=== PATIENT | female | born 1955 | race Caucasian/White ===

== ENCOUNTER → 2018-05-13 | Outpatient (CLI) | payer BC ==
[~2018-05-13] MED LIST: DICL75TA2 PO; ESTR0.5T3 PO; HYDR25TA4 PO; LISI-556 PO; MEDR2.5T PO; POTA10TA10 PO; SIMV40TA4 PO; TRAM50TA2 PO
--- NOTE | 2018-05-13 10:13 | Diagnostic Imaging Report ---
CLINICAL INDICATION: Patient with neck pain/tingling with right shoulder area tingling x couple years. No known injury. EXAM: MRI of the cervical spine performed without IV contrast. Sequences include sagittal T2, sagittal T1, sagittal STIR, and axial T2. COMPARISON: X-ray of the cervical spine dated 10/31/2016. FINDINGS: There is no acute cervical spine fracture or dislocation. There is abnormal straightening of the mid to lower cervical spine posture centered at the C5 vertebral body level. Limited visualization of the posterior fossa and cervical spine shows no significant abnormality. There is normal cervical cord caliber. There is normal T1 and T2 signal seen throughout the cervical spine. There is no significant paraspinal soft tissue abnormality. There are hypertrophic spurs and disc herniations and facet arthropathy seen throughout the cervical spine. C1-C2: There is a periodontoid pannus seen predominantly extending anteriorly. There is no definite odontoid process or erosive changes. There is spurring of the atlantoodontoid interval anteriorly. There is no significant central canal narrowing. C2-C3: There is mild facet arthropathy. There is no significant central spinal canal or neural foramen narrowing. C3-C4: There is a small central posterior disc protrusion/herniation. There is moderate bilateral facet arthropathy/hypertrophy. There is severe right neural foramen narrowing and mild to moderate left neural foramen narrowing. There is no significant central canal narrowing. C4-C5: There is a diffuse disc bulge with moderate size anterior disc herniation and moderate central posterior disc extrusion/herniation. There is moderate bilateral facet arthropathy/hypertrophy. There is at least moderate right neural foramen narrowing and severe left neural foramen narrowing. There is mild central canal narrowing. C5-C6: There is a diffuse disc bulge with moderate to large anterior disc osteophyte complex and moderate size broad posterior disc protrusion/herniation. There is moderate loss of intervertebral disc height. There is mild ligamentum flavum buckling and mild to moderate bilateral facet arthropathy. There is moderate to severe central canal narrowing, moderate right neural foramen narrowing and severe left neural foramen narrowing. C6-C7: There is a diffuse disc bulge and minimal ligamentum flavum buckling. There is mild bilateral facet arthropathy. There is a small perineural cyst seen bilaterally with the largest one seen on the right side and measures 4 mm. There is mild to moderate central canal narrowing, mild right neural foramen narrowing and severe left neural foramen narrowing. C7-T1: There is a small posterior disc bulge and minimal ligamentum flavum buckling. There is moderate left neural foramen narrowing and no significant right neural foramen narrowing. There are small perineural cysts seen bilaterally. IMPRESSION: 1: There is moderate to severe multilevel cervical spine degenerative disc disease which is worse at the C4-C7 levels which is described in detail above. 2: There is multilevel disc herniations and facet arthropathy and ligamentum flavum buckling seen. There is moderate to severe central canal narrowing at C5-C6 level. 3: There is multilevel neural foramen narrowing, as described above. Dictated by: Dictated on workstation # [id number]
== END ==
LOC: RAD 08:58
PROVIDERS: ATTEND Family Medicine
DX: M48.02 Spinal stenosis, cervical region (principal); M99.71 Connective tissue and disc stenosis of intervertebral foramina of cervical region; M50.13 Cervical disc disorder with radiculopathy, cervicothoracic region; M50.122 Cervical disc disorder at C5-C6 level with radiculopathy; G96.19 Other disorders of meninges, not elsewhere classified; M46.82 Other specified inflammatory spondylopathies, cervical region
CPT/HCPCS: 72141

== ENCOUNTER → 2019-04-26 | Outpatient (CLI) | payer BC ==
--- NOTE | 2019-04-26 21:21 | Diagnostic Imaging Report ---
INDICATION: Routine screening. Comparison is made with prior mammogram from 08/17/2013. 2-D and 3-D bilateral screening mammography was performed with CAD. The current study was also evaluated with a Computer Aided Detection (CAD) system. 3-D tomosynthesis was also performed and reviewed. Scattered fibroglandular densities are identified bilaterally. Benign-appearing parenchymal nodules are noted bilaterally consistent with intramammary lymph nodes. No spiculated mass or malignant appearing microcalcifications are seen. The axillae are unremarkable. IMPRESSION: No mammographic features suspicious for malignancy are identified. ACR BI-RADS Category 2: Benign findings. Result letter will be mailed to the patient. Note: At least 10% of breast cancer is not imaged by mammography. Dictated by: Dictated on workstation # [id number]
== END ==
LOC: RAD 13:04
PROVIDERS: ATTEND Obstetrics & Gynecology
DX: Z12.31 Encounter for screening mammogram for malignant neoplasm of breast (principal)
CPT/HCPCS: 77067

== ENCOUNTER 2019-05-23 08:56 | Outpatient (CLI) | payer BC ==
[~2019-05-23] VITALS: Ht 162.6 cm; Wt 82.2 kg
[2019-05-23] MEDS ORDERED: LISI10TA2 PO (09:14)
[2019-05-23 09:16] VITALS: BP 118/65
[2019-05-23 10:10] LABS: BASOPHILS % (AUTO) 0 % (0-10); EOSINOPHILS # (AUTO) 0.2 10^3/uL (0.0-0.3); EOSINOPHILS % (AUTO) 4 % (0-10); HEMATOCRIT 36 % (35-52); HEMOGLOBIN 11.7 G/DL (11.5-16.0); LYMPHOCYTES # (AUTO) 1.9 X 10^3 (1.0-4.0); LYMPHOCYTES % (AUTO) 32 % (12-44); MEAN CORPUSCULAR HEMOGLOBIN 29 PG (25-34); MEAN CORPUSCULAR HGB CONC 32 G/DL (32-36); MEAN CORPUSCULAR VOLUME 89 FL (80-99); MEAN PLATELET VOLUME 10.6 FL (7.4-10.4); MONOCYTES # (AUTO) 0.5 X 10^3 (0.0-1.0); MONOCYTES % (AUTO) 9 % (0-12); NEUTROPHILS # (AUTO) 3.2 X 10^3 (1.8-7.8); NEUTROPHILS % (AUTO) 55 % (42-75); PLATELET COUNT 274 10^3/uL (130-400); RED CELL DISTRIBUTION WIDTH 13.3 % (10.0-14.5); WHITE BLOOD COUNT 5.9 10^3/uL (4.3-11.0)
[2019-05-27] MEDS ORDERED: DOCU-143 PO (08:58)
[2019-05-27] MEDS ORDERED: OXYC1TAB87 PO (08:58)
== END 2019-05-23 14:41 | disposition home or self-care (01) ==
LOC: PREOP 08:56
PROVIDERS: ATTEND Obstetrics & Gynecology
DX: Z01.812 Encounter for preprocedural laboratory examination (principal); Z11.2 Encounter for screening for other bacterial diseases; N39.3 Stress incontinence (female) (male); N81.10 Cystocele, unspecified; N93.8 Other specified abnormal uterine and vaginal bleeding; N95.0 Postmenopausal bleeding; D64.9 Anemia, unspecified
CPT/HCPCS: 36415; 85025; 86850; 86900; 86901; 87081

== ENCOUNTER 2019-05-27 10:20 | Day surgery (SDC) | payer BC ==
--- NOTE | 2019-05-10 17:52 | HISTORY AND PHYSICAL ---
DATE OF SERVICE: HISTORY OF PRESENT ILLNESS: The patient is a 64-year-old G2, P2 white female with a long history of abnormal uterine bleeding. She was found to have endometrial hyperplasia on an endometrial biopsy on 12/09/2018. She has been treated intermittently with progesterone, but has requested definitive surgical treatment for her bleeding rather than continued hormonal manipulation and in addition she is planning a surgical procedure with Dr. Shook for stress urinary incontinence and is requesting that her uterovaginal prolapse being repaired concurrently as her symptoms are becoming intolerable in regard to her cystocele and rectocele. She is aware of the surgical risks, potential complications, recovery and follow up from definitive surgery for uterovaginal prolapse and stress incontinence. ALLERGIES: None. MEDICATIONS: Estradiol 0.5 mg per day, diclofenac 75 mg per day, simvastatin 40 mg per day, lisinopril 10 mg per day and doxycycline 20 mg b.i.d. p.r.n. for periodontal issue. PAST MEDICAL HISTORY: Consistent with hypertension, arthritis. The patient had a colonoscopy in 2015. SURGICAL HISTORY: Negative. PAST OB HISTORY: The patient had two spontaneous vaginal deliveries in 10/1981 and in 03/1984. GYNECOLOGIC HISTORY: Includes a menstrual formula of 12. The patient is currently menopausal. Her Pap smears have all been normal. FAMILY HISTORY: Negative for breast cancer, but her mother did have ovarian cancer at the age of 70. There is no diabetes in the family. The father does have some type of heart disease. SOCIAL HISTORY: The patient is . She is a paraprofessional. She denies drug, alcohol or tobacco use and has no history of STDs. REVIEW OF SYSTEMS: As per the HPI. PHYSICAL EXAMINATION: GENERAL: The patient is well-developed, well-nourished female in no acute distress. HEENT: Normal. NECK: Supple, no lymphadenopathy, no thyromegaly. ABDOMEN: Soft, nontender, nondistended. EXTREMITIES: Show no clubbing, cyanosis. There is no Homans sign. PELVIC EXAM: Deferred to the OR, but her previous exam showed a first degree plus cystocele and second-degree rectocele. An 8 to 10 week size uterine with first to second-degree descensus, all of her prolapse is fairly significantly increased with Valsalva. IMPRESSION: Uterovaginal prolapse with stress urinary incontinence in a patient with abnormal bleeding and a history of endometrial hyperplasia inadequately controlled with hormonal manipulation. PLAN: Plan is for total laparoscopic hysterectomy with bilateral salpingo-oophorectomy as well as anterior and posterior vaginal repairs with Dr. Shook performing a pubovaginal sling and cystoscopy on 05/27/2019. Again, surgical risks, complication, recovery and follow up have been fully discussed with this patient. She accepts those risks and is ready to proceed with the surgery on that date. Job ID: [id number] DocumentID: [id number] Dictated Date: 05/05/2019 10:18:56 Concession Stand Attendant Date: 05/05/2019 16:57:15 Dictated By: GOLDEN BIGGS MD
[~2019-05-27] VITALS: Ht 162.6 cm; Wt 82.2 kg
[2019-05-27] VITALS (13 sets, daily range): BP systolic 16–131; BP diastolic 50–115
--- NOTE | 2019-05-27 09:00 | Discharge Instructions ---
Discharge Instructions Discharge Medications New, Converted or Re-Newed RX: RX on Chart Patient Instructions Patient Instructions: as directed Return to The Hospital For: as directed Activity & Diet Discharge Diet: No Restrictions Activity as Tolerated: No Orders-Post D/C & Referrals Follow Up Appt: RTC on Thursday at 9:30 AM for staple removal Call to make follow up appt. for patient in 4 weeks. Follow up with Dr Shook per his directions Activity: Rest for 24 hours, than as tolerated. Wound Care: May remove Band-Aid tomorrow. Replace as desired. Keep incisions clean and dry. Wash daily with soap and water. Please call in RX to patient pharmacy. Diet: As tolerated-Clear Liquids only if nauseated. may shower or tub bathe as desired. No driving for 24 hours, no alcoholic beverages for 24 hours, and nothing per vagina (no tampons, douching, or intercourse) for 8 weeks. Patient to return to the clinic as soon as possible for: Temperature greater than 101F, Severe Pain, Foul discharge from incision or vagina, Excessive Bleeding (more than a period). GOLDEN BIGGS MD May 27, 2019 09:00
--- NOTE | 2019-05-27 09:01 | Progress Note-Pre Operative ---
Pre-Operative Progress Note H&P Reviewed The H&P was reviewed, patient examined and no changes noted. Date Seen by Provider: May 27, 2019 Time Seen by Provider: 12:18 Date H&P Reviewed: May 27, 2019 Time H&P Reviewed: 12:18 Pre-Operative Diagnosis: DUB/PMB/Uterovaginal prolapse GOLDEN BIGGS MD May 27, 2019 09:01
--- NOTE | 2019-05-27 09:03 | Progress Note-Post Operative ---
Post-Operative Progess Note Surgeon (s)/Therapeutic Assistant (s) Surgeon GOLDEN BIGGS MD Therapeutic Assistant: Brittny Neville Pre-Operative Diagnosis DUB/PMB/Uterovaginal prolapse Post-Operative Diagnosis same Procedure & Operative Findings Date of Procedure 05/27/19 Procedure Performed/Findings TLH/BSO/A&P repairs with PVS and cysto by Dr Shook Anesthesia Type GETA Estimated Blood Loss Estimated blood loss (mL): 150 CC Specimens/Packing Specimens Removed Uterus/tubes/ovaries Packing: Kerlix in vagina GOLDEN BIGGS MD May 27, 2019 09:03
--- NOTE | 2019-05-27 09:22 | Progress Note-Pre Operative ---
Pre-Operative Progress Note H&P Reviewed The H&P was reviewed, patient examined and no changes noted. Date Seen by Provider: May 27, 2019 Time Seen by Provider: 11:34 Date H&P Reviewed: May 27, 2019 Time H&P Reviewed: 11:34 Pre-Operative Diagnosis: INCONTINENCE RENITA SUMNER MD May 27, 2019 09:22
[~2019-05-27 10:20] MED LIST changes: +DOCU-143 PO; +LISI10TA2 PO; +OXYC1TAB87 PO
[2019-05-27] MEDS ORDERED: fentaNYL INJECTION 100 MCG/2 ML AMP ONE (10:22)
[2019-05-27] MEDS ORDERED: ONDANSETRON 4 MG/2 ML (SDV) Z0FRAN ONE ×3 (10:22→14:45)
[2019-05-27] MEDS ORDERED: LIDOCAINE PF 2% 5 ML (XYLOCAINE) VIAL ONE (10:22)
[2019-05-27] MEDS ORDERED: proPOfol 200 MG/20 ML (DIPRIVAN) VIAL IV ONE (10:22)
[2019-05-27] MEDS ORDERED: DEXAMETHASONE 10 MG/ML (DECADRON) 1 ML VIAL ONE (10:22)
[2019-05-27] MEDS ORDERED: MIDAZOLAM 2 MG/2 ML (VERSED) VIAL ONE (10:22)
[2019-05-27] MEDS ORDERED: ceFAZolin 1,000 MG/SWFI 10 ML IV PUSH IV ONE ×2 (10:30)
--- OUTSIDE RECORDS SUMMARY | 2019-05-27 10:54 | XMS REPORT | Continuity of Care Document ---
Author Organization Unknown Address Unknown Allergies Active Description Code Type Severity Reaction Onset Reported/Identified Relationship to Patient Clinical Status Yes No Known Drug Allergies [id number] Drug Allergy Unknown N/A 05/23/2019 Medications There is no data. Problems Date Dx Coded Attending Type Code Diagnosis Diagnosed By 09/25/2015 ROBIN CODY MD Ot R10.32 10/10/2015 ROBIN CODY MD Ot K86.9 10/10/2015 ROBIN CODY MD Ot R10.2 12/24/2015 JOSELO DUNN, RENNY Weaver Ot R10.32 LEFT LOWER QUADRANT PAIN 12/24/2015 JOSELO DUNN, RENNY Weaver Ot Z12.11 ENCOUNTER FOR SCREENING FOR MALIGNANT NE 10/31/2016 JESUS SALDANA MD Ot I10 ESSENTIAL (PRIMARY) HYPERTENSION 10/31/2016 JESUS SALDANA MD Ot M50.322 OTHER CERVICAL DISC DEGENERATION AT C5-C 10/31/2016 JESUS SALDANA MD Ot M54.2 CERVICALGIA 10/31/2016 JESUS SALDANA MD Ot Z79.899 OTHER LOAN DOCUMENTS CLOSER (CURRENT) DRUG THERAPY 11/02/2016 JESUS SALDANA MD Ot I10 ESSENTIAL (PRIMARY) HYPERTENSION 11/02/2016 JESUS SALDANA MD Ot M50.322 OTHER CERVICAL DISC DEGENERATION AT C5-C 11/02/2016 JESUS SALDANA MD Ot M54.2 CERVICALGIA 11/02/2016 JESUS SALDANA MD Ot Z79.899 OTHER LONG-TERM (CURRENT) DRUG THERAPY 05/12/2018 ROBIN CODY MD Ot 625.8 FEM GENITAL SYMPTOMS NEC 05/12/2018 ROBIN CODY MD Ot 719.45 JOINT PAIN-PELVIS 05/12/2018 ROBIN CODY MD Ot V16.41 FAM HX-MAL NEOP-OVARY 05/12/2018 ROBIN CODY MD Ot V76.12 OTH SCREEN MAMMO-MALIGN NEOPLASM OF MANAN 05/12/2018 ROBIN CODY MD Ot R10.32 LEFT LOWER QUADRANT PAIN 05/12/2018 ESCOBAR DUNN, ROBIN Valadez Ot K86.9 DISEASE OF PANCREAS, UNSPECIFIED 05/12/2018 ROBIN CODY MD Ot R10.2 PELVIC AND PERINEAL PAIN 05/12/2018 JOSELO DUNN, RENNY Weaver Ot Z01.818 ENCOUNTER FOR OTHER PREPROCEDURAL EXAMIN 05/14/2018 NIKITA PARKS MD Ot G96.19 OTHER DISORDERS OF MENINGES, NOT ELSEWHE 05/14/2018 NIKITA PARKS MD Ot M46.82 OT INFLAMMATORY SPONDYLOPATHIES, CERVIC 05/14/2018 NIKITA PARKS MD, Ot M48.02 SPINAL STENOSIS, CERVICAL REGION 05/14/2018 NIKITA PARKS MD, Ot M50.122 CERVICAL DISC DISORDER AT C5-C6 LEVEL WI 05/14/2018 NIKITA PARKS MD, Ot M50.13 CERVICAL DISC DISORDER W RADICULOPATHY, 05/14/2018 NIKITA PARKS MD Ot M99.71 CONN TISS AND DISC STENOSIS OF INTVRT FO 05/14/2018 NIKITA PARKS MD Ot G96.19 OTHER DISORDERS OF MENINGES, NOT ELSEWHE 05/14/2018 NIKITA PARKS MD Ot M46.82 OT INFLAMMATORY SPONDYLOPATHIES, CERVIC 05/14/2018 NIKITA PARKS MD, Ot M48.02 SPINAL STENOSIS, CERVICAL REGION 05/14/2018 NIKITA PARKS MD Ot M50.122 CERVICAL DISC DISORDER AT C5-C6 LEVEL WI 05/14/2018 NIKITA PARKS MD Ot M50.13 CERVICAL DISC DISORDER W RADICULOPATHY, 05/14/2018 NIKITA PARKS MD, Ot M99.71 CONN TISS AND DISC STENOSIS OF INTVRT FO 05/25/2018 NIKITA PARKS MD Ot G96.19 OTHER DISORDERS OF MENINGES, NOT ELSEWHE 05/25/2018 NIKITA PARKS MD Ot M46.82 OT INFLAMMATORY SPONDYLOPATHIES, CERVIC 05/25/2018 NIKITA PARKS MD Ot M48.02 SPINAL STENOSIS, CERVICAL REGION 05/25/2018 NIKITA PARKS MD Ot M50.122 CERVICAL DISC DISORDER AT C5-C6 LEVEL WI 05/25/2018 NIKITA PARKS MD Ot M50.13 CERVICAL DISC DISORDER W RADICULOPATHY, 05/25/2018 NIKITA PARKS MD Ot M99.71 CONN TISS AND DISC STENOSIS OF INTVRT FO 04/25/2019 ROBIN CODY MD Ot R10.32 LEFT LOWER QUADRANT PAIN 04/25/2019 ROBIN CODY MD Ot K86.9 DISEASE OF PANCREAS, UNSPECIFIED 04/25/2019 ROBIN CODY MD Ot R10.2 PELVIC AND PERINEAL PAIN 04/25/2019 JOSELO DUNN, RENNY Weaver Ot Z01.818 ENCOUNTER FOR OTHER PREPROCEDURAL EXAMIN 04/25/2019 NIKITA PARKS MD Ot G96.19 OTHER DISORDERS OF MENINGES, NOT ELSEWHE 04/25/2019 NIKITA PARKS MD Ot M46.82 OTH INFLAMMATORY SPONDYLOPATHIES, CERVIC 04/25/2019 NIKITA PARKS MD Ot M48.02 SPINAL STENOSIS, CERVICAL REGION 04/25/2019 NIKITA PARKS MD Ot M50.122 CERVICAL DISC DISORDER AT C5-C6 LEVEL WI 04/25/2019 NIKITA PARKS MD Ot M50.13 CERVICAL DISC DISORDER W RADICULOPATHY, 04/25/2019 NIKITA PARKS MD Ot M99.71 CONN TISS AND DISC STENOSIS OF INTVRT FO 04/28/2019 GOLDEN BIGGS MD Ot Z12.31 ENCNTR SCREEN MAMMOGRAM FOR MALIGNANT NE 04/28/2019 GOLDEN BIGGS MD Ot Z12.31 ENCNTR SCREEN MAMMOGRAM FOR MALIGNANT NE 05/12/2019 GOLDEN BIGGS MD Ot Z12.31 ENCNTR SCREEN MAMMOGRAM FOR MALIGNANT NE 05/23/2019 ROBIN CODY MD Ot R10.32 LEFT LOWER QUADRANT PAIN 05/23/2019 ROBIN CODY MD Ot K86.9 DISEASE OF PANCREAS, UNSPECIFIED 05/23/2019 ROBIN CODY MD Ot R10.2 PELVIC AND PERINEAL PAIN 05/23/2019 JOSELO DUNN, RENNY M Ot Z01.818 ENCOUNTER FOR OTHER PREPROCEDURAL EXAMIN 05/23/2019 NIKITA PARKS MD Ot G96.19 OTHER DISORDERS OF MENINGES, NOT ELSEWHE 05/23/2019 NIKITA PARKS MD Ot M46.82 OTH INFLAMMATORY SPONDYLOPATHIES, CERVIC 05/23/2019 NIKITA PARKS MD Ot M48.02 SPINAL STENOSIS, CERVICAL REGION 05/23/2019 CHARLY DUNN, NIKITA Reis Ot M50.122 CERVICAL DISC DISORDER AT C5-C6 LEVEL WI 05/23/2019 NIKITA PARKS MD, Ot M50.13 CERVICAL DISC DISORDER W RADICULOPATHY, 05/23/2019 NIKITA PARKS MD, Ot M99.71 CONN TISS AND DISC STENOSIS OF INTVRT FO 05/23/2019 DIAN DUNN, GOLDEN Jiménez Ot Z12.31 ENCNTR SCREEN MAMMOGRAM FOR MALIGNANT NE Procedures There is no data. Results Test Result Range Complete blood count (CBC) with automated white blood cell (WBC) differential - 05/23/19 09:30 Blood leukocytes automated count (number/volume) 5.9 10*3/uL 4.3-11.0 Blood erythrocytes automated count (number/volume) 4.04 10*6/uL 4.35-5.85 Venous blood hemoglobin measurement (mass/volume) 11.7 g/dL 11.5-16.0 Blood hematocrit (volume fraction) 36 % 35-52 Automated erythrocyte mean corpuscular volume 89 [foz_us] 80-99 Automated erythrocyte mean corpuscular hemoglobin (mass per erythrocyte) 29 pg 25-34 Automated erythrocyte mean corpuscular hemoglobin concentration measurement (mass/volume) 32 g/dL 32-36 Automated erythrocyte distribution width ratio 13.3 % 10.0- 14.5 Automated blood platelet count (count/volume) 274 10*3/uL 130-400 Automated blood platelet mean volume measurement 10.6 [foz_us] 7.4-10.4 Automated blood neutrophils/100 leukocytes 55 % 42-75 Automated blood lymphocytes/100 leukocytes 32 % 12-44 Blood monocytes/100 leukocytes 9 % 0-12 Automated blood eosinophils/100 leukocytes 4 % 0-10 Automated blood basophils/100 leukocytes 0 % 0-10 Blood neutrophils automated count (number/volume) 3.2 10*3 1.8-7.8 Blood lymphocytes automated count (number/volume) 1.9 10*3 1.0-4.0 Blood monocytes automated count (number/volume) 0.5 10*3 0.0- 1.0 Automated eosinophil count 0.2 10*3/uL 0.0-0.3 Automated blood basophil count (count/volume) 0.0 10*3/uL 0.0-0.1 Blood type T Indirect antibody screen panel - 05/23/19 09:30 ABO+Rh group AP NRG Blood group antibody screen NEGATIVE NRG Methicillin resistant Staphylococcus aureus (MRSA) screening culture - 05/23/19 09:30 Methicillin resistant Staphylococcus aureus (MRSA) screening culture NEG NRG Encounters ACCT No. Visit Date/Time Discharge Status Pt. Type Provider Facility Loc./Unit Complaint [id number] 05/23/2019 08:56:00 05/23/2019 14:41:00 DIS Outpatient GOLDEN BIGGS MD [facility] PREOP TLH, BSO, AP REPAIR, SLING [id number] 04/26/2019 13:04:00 04/26/2019 23:59:59 CLS Outpatient GOLDEN BIGGS MD [facility] RAD ROUTINE [id number] 12/09/2018 10:48:00 12/09/2018 23:59:59 CLS Preadmit GOLDEN BIGGS MD [facility] RAD SCREENING [id number] 05/13/2018 08:58:00 05/13/2018 23:59:59 CLS Outpatient NIKITA PARKS MD [facility] RAD CERVICALGIA,RAICULOPATHY [id number] 10/31/2016 12:15:00 10/31/2016 14:57:00 DIS Emergency JESUS SALDANA MD [facility] ER NECK PAIN [id number] 12/24/2015 13:46:00 12/24/2015 23:59:59 CLS Outpatient RENNY JOSUE MD [facility] SDC ABDOMINAL PAIN; SCREENING [id number] 12/21/2015 05:42:00 12/21/2015 23:59:59 CLS Outpatient RENNY JOSUE MD [facility] PREOP ABDOMINAL PAIN; SCREENING [id number] 09/24/2015 07:54:00 09/24/2015 23:59:59 CLS Outpatient ROBIN CODY MD [facility] RAD LEFT ABD PELVIC PAIN, ENLARGED AREA PANCREAS [id number] 09/14/2015 13:38:00 09/14/2015 23:59:59 CLS Outpatient ROBIN CODY MD [facility] RAD LLQ PAIN [id number] 08/17/2013 07:49:00 08/17/2013 23:59:59 CLS Outpatient ESCOBAR DUNN, ROBIN Valadez [facility] RAD SCREENING,TENDER ENLARGED LFT OVARY, RT HIP PAIN [id number] 05/25/2013 10:46:00 05/25/2013 23:59:59 CLS Outpatient [id number] 05/27/2019 12:00:00 ABRAHAM BIGGS MD, GOLDEN Jiménez [facility] DYSFUNCTIONAL UTERINE BLEEDING, POST MENOPAUSAL BL
[2019-05-27] MEDS ORDERED: ceFAZolin INJECTION 1,000 MG in WATER (STERILE) FOR INJECTION 10 ML IV ONE (11:15)
[2019-05-27] MEDS ORDERED: BUP/EPI 0.25% 1:200,000 (MARCAINE) 10 ML VIAL IJ ONE (11:42)
[2019-05-27] MEDS ORDERED: ESTRADIOL VAGINAL CREAM 42.5 GM (ESTRACE) VG ONE (11:42)
[2019-05-27] MEDS ORDERED: SEVOFLURANE (ULTANE) 15 ML INHAL SOLN ONE ×8 (12:00→14:10)
[2019-05-27] MEDS ORDERED: HYDROmorphone 2 MG/ML VIAL (DILAUDID) ONE ×3 (12:56→14:44)
[2019-05-27] MEDS: LACTATED RINGERS 1,000 ML IV PRN ×2 (12:59→15:00)
[2019-05-27] MEDS ORDERED: NEOSTIGMINE 3 MG/3 ML VIAL ONE (13:51)
[2019-05-27] MEDS ORDERED: GLYCOPYRROLATE 0.2 MG/ML (ROBINUL) 2 ML VIAL ONE ×2 (13:51→14:29)
--- NOTE | 2019-05-27 13:59 | Progress Note-Post Operative ---
Post-Operative Progess Note Surgeon (s)/Water Leak Repairer (s) Surgeon RENITA SUMNER MD Water Leak Repairer: Danielle BIGGS Pre-Operative Diagnosis INCONTINENCE Post-Operative Diagnosis SAME Procedure & Operative Findings Date of Procedure 05/27/19 Procedure Performed/Findings PVS AND CYSTOSCOPY Anesthesia Type GENERAL Estimated Blood Loss Estimated blood loss (mL): LESS THAN 50CC Specimens/Packing Specimens Removed NONE Packing: Kerlix in vagina RENITA SUMNER MD May 27, 2019 13:59
[2019-05-27] MEDS ORDERED: ROCURONIUM 10 MG/ML 5 ML SYRINGE IV ONE (14:12)
[2019-05-27] MEDS ORDERED: morphine INJ 10 MG/ML 1ML (SYR OR VIAL) ONE (14:21)
[2019-05-27] MEDS: WATER (STERILE) FOR INJ 10 ML BTL INJ ONE ×2 (14:28→16:37)
[2019-05-27] MEDS: ESTROGENS CONJ IV 25 MG/5 ML (PREMARIN) VIAL ONE ×2 (14:28→16:37)
[2019-05-27] MEDS ORDERED: ONDANSETRON 4 MG/2 ML (SDV) Z0FRAN IVP PRN ×2 (14:45)
[2019-05-27] MEDS ORDERED: ESTROGENS CONJ IV 25 MG/5 ML (PREMARIN) VIAL IVP ONE (14:45)
[2019-05-27] MEDS ORDERED: PROMETHAZINE INJ 25 MG/ML (PHENERGAN) AMP IM PRN (14:45)
[2019-05-27] MEDS ORDERED: MEPERIDINE (DEMEROL) INJ 100 MG/ML IM PRN (14:45)
[2019-05-27] MEDS ORDERED: oxyCODONE/APAP 5/325MG (PERCOCET 5) TABLET PO PRN (14:45)
[2019-05-27] MEDS ORDERED: BENZOCAINE/MENTHOL (DERMOPLAST) 56 ML CAN TP PRN (14:45)
[2019-05-27] MEDS ORDERED: WATER (STERILE) FOR INJECTION 10 ML ONE (14:46)
[2019-05-27] MEDS: HYDROmorphone 2 MG/ML VIAL (DILAUDID) IV ONE ×2 (15:05→16:43)
--- NOTE | 2019-05-27 16:00 | NUR ---
Patient arrived to room 306 via bed from PACU accompanied by Christianne CLARK. Report received and care of patient assumed.
--- NOTE | 2019-05-27 16:28 | NUR ---
Admission assessment completed and vital signs obtained, see interventions. Plan of care reviewed with patient and . Understanding verbalized and patient denies any current questions or concerns at this time. SCD's on bilaterally. IV converted to pump tubing. Cheney to dependent drainage.
[2019-05-27] MEDS: D5 LR IV SOLUTION 1,000 ML IV SCH ×2 (16:36→22:21)
[2019-05-27] MEDS: KETOROLAC 30 MG/ML VIAL IVP SCH ×2 (17:20→23:36)
--- NOTE | 2019-05-27 17:20 | NUR ---
Toradol 30mg IV given at this time. Patient reports mild headache but otherwise is feeling "good."
--- NOTE | 2019-05-27 19:30 | NUR ---
Report to Marc Claire RN.
[2019-05-27] MEDS ORDERED: CHLORASEPTIC LOZENGE MM ONE (23:34)
--- NOTE | 2019-05-28 00:15 | OPERATIVE REPORT ---
DATE OF SERVICE: 05/27/2019 PREOPERATIVE DIAGNOSES: Dysfunctional uterine bleeding, postmenopausal bleeding, uterine and vaginal prolapse and stress urinary incontinence. POSTOPERATIVE DIAGNOSES: Dysfunctional uterine bleeding, postmenopausal bleeding, uterine and vaginal prolapse and stress urinary incontinence with pathology pending. OPERATIVE PROCEDURE: Total laparoscopic hysterectomy with bilateral salpingo-oophorectomy as well as anterior and posterior vaginal repair with enterocele repair and pubovaginal sling and cystoscopy by Dr. Shook. OPERATIVE DESCRIPTION: With the patient in the supine position under satisfactory general anesthesia, she was repositioned in dorsal lithotomy position in the [facility] and prepped and draped in the usual fashion for abdominal and vaginal surgery using the da Erica equipment. Weighted speculum placed in posterior fornix of vagina, cervix exposed and grasped anteriorly with single tooth tenaculum. Uterus was sounded to 8.5 cm with uterine sound. The cervix was then serially dilated with Juan M dilators to accommodate Jazmine II manipulator, which was placed in the usual manner with a 6 mm x 8 cm uterine probe and a 30 mm colpotomy ring. Sutures of #1 Vicryl placed at 3 and 9 o'clock position of the cervix to stabilize the uterus and affixed to the manipulator. Cheney catheter was placed in the urinary bladder and the patient brought in low dorsal lithotomy position. A 12 mm incision was made 4 cm superior to the umbilicus. Veress needle was placed through that incision into the abdominal cavity and correct placement confirmed with a water drop test. The abdomen was insufflated with 2.4 liters of carbon dioxide and the Veress needle was removed and a 12 mm Optiview laparoscopic port placed. The abdominal wall was transilluminated and 8 mm ports were placed through incisions of those sizes 9 cm lateral to the umbilicus at the level of the umbilicus on each side. All port sites were infiltrated with 0.25% Marcaine with epinephrine prior to incision. Job ID: [id number] DocumentID: [id number] Dictated Date: 05/27/2019 14:24:23 Steel Floor Pan Placing Supervisor Date: 05/28/2019 00:14:49 Dictated By: GOLDEN BIGGS MD
[2019-05-28 04:54] VITALS: BP 112/47
[2019-05-28] MEDS: KETOROLAC 30 MG/ML VIAL IVP SCH (04:55)
--- NOTE | 2019-05-28 07:30 | NUR ---
DR. BIGGS HERE TO SEE PT. PLAN FOR DISCHARGE TODAY.
--- NOTE | 2019-05-28 07:32 | Progress Note ---
Standard Progress Note Progress Notes/Assess & Plan Date Seen by a Provider: May 28, 2019 Time Seen by a Provider: 07:31 Progress/Assessment & Plan This patient without complaint. She is ambulating, tolerating oral intake well and has been pain control. She denies chest pain, denies shortness of breath, nausea vomiting, and denies headache. She has not voided as of yet Vital Signs Date Time Temp Pulse Resp B/P (MAP) Pulse Ox O2 Delivery O2 Flow Rate FiO2 05/28/19 04:54 99.4 57 18 112/47 (68) 96 Room Air 05/27/19 23:36 99.9 68 18 116/59 (78) 97 Room Air 05/27/19 19:57 Room Air 05/27/19 19:57 98.7 60 18 119/59 (79) 100 Room Air 05/27/19 16:39 Room Air 05/27/19 16:28 100 High Flow N/C 3.00 21 05/27/19 16:28 97.7 57 18 123/61 (81) 100 High Flow N/C 21.00 3.00 05/27/19 16:00 Nasal Cannula 3 05/27/19 15:50 97.5 16 99 Nasal Cannula 3 05/27/19 15:45 OxyMask 3 05/27/19 15:40 50 Nasal Cannula 3 05/27/19 15:30 16 99 OxyMask 5 05/27/19 15:30 OxyMask 5 05/27/19 15:20 16 100 OxyMask 05/27/19 15:15 OxyMask 10 05/27/19 15:10 16 100 OxyMask 10 05/27/19 15:00 16 100 OxyMask 10 05/27/19 15:00 OxyMask 10 05/27/19 14:50 16 100 OxyMask 10 05/27/19 14:45 OxyMask 10 05/27/19 14:40 16 100 10 05/27/19 14:29 97.6 20 98 OxyMask 10 05/27/19 11:17 98.7 55 18 128/64 (85) 98 Room Air I & O 05/28/19 07:00 Intake Total 2620 ml Output Total 1850 ml Balance 770 ml Vital signs are stable. Patient is afebrile. The abdomen is benign. Extremities show no clubbing or cyanosis. No Homans sign. Assessment and plan postoperative day number 1 doing well. Plan is for routine, here with discharge home on patient has demonstrated adequate bladder function. Final Diagnosis DUB/postmenopausal bleeding/uterovaginal prolapse GOLDEN BIGGS MD May 28, 2019 07:32
[2019-05-28] MEDS ORDERED: CHLORASEPTIC LOZENGE MM PRN (07:45)
--- NOTE | 2019-05-28 08:10 | Anesthesia-General Post-Op ---
General Patient Condition Mental Status/LOC: Same as Preop Cardiovascular: Satisfactory Nausea/Vomiting: Absent Respiratory: Satisfactory Pain: Controlled Complications: Absent Post Op Complications Complications None Follow Up Care/Instructions Patient Instructions None needed. Anesthesia/Patient Condition Patient Condition Patient is doing well, no complaints, stable vital signs, no apparent adverse anesthesia problems. No complications reported per nursing. D/C home per [facility] Criteria: Yes DANIELLE CONCEPCION CRNA May 28, 2019 08:10
[2019-05-28 08:45] VITALS: BP 118/56
--- NOTE | 2019-05-28 08:45 | NUR ---
VSS. ASSESSMENT COMPLETED. UP TO THE BATHROOM. VOIDED 50 CC. PERICARE PERFORMED WITH PAD CHANGE. SCANT SPOTTING ON PAD.
[2019-05-28] MEDS ORDERED: ESTRADIOL 1 MG TAB (ESTRACE) PO SCH (09:00)
[2019-05-28] MEDS ORDERED: DOCUSATE SODIUM 100 MG (COLACE) CAP PO SCH (09:00)
--- NOTE | 2019-05-28 09:15 | NUR ---
OUT TO AMBULATE IN THE HALLWAY WITH STANDBY ASSIST. MOVES WELL WITHOUT C/O DIZZINESS. BACK TO ROOM. INFORMED PT TO LET THIS RN KNOW WHEN SHE VOIDS. ENCOURAGED AMBULATION WITH EITHER THIS RN OR SPOUSE.
--- NOTE | 2019-05-28 11:00 | NUR ---
DR. SUMNER HERE TO SEE PT.
--- NOTE | 2019-05-28 11:01 | Progress Note - Urology ---
Progress Note-Urology Progress Notes/Assess & Plan Progress/Assessment & Plan VOIDED ONCE 50CC. NO LEAKAGE. WE WILL CHECK PVR AFTER A GOOD VOID Final Diagnosis URINE INCONTINENCE RENITA SUMNER MD May 28, 2019 11:01
--- NOTE | 2019-05-28 11:10 | NUR ---
VOIDE ANOTHER 60 CC. WILL BLADDER SCAN AFTER PT VOIDS MORE.
--- NOTE | 2019-05-28 11:36 | NUR ---
DR. SUMNER NOTIFIED OF BLADDER SCAN OF AN AVERAGE OF 300 MLS. PT DENIES DISCOMFORT. ORDER TO OBSERVE AND REPEAT LATER.
[2019-05-28 13:15] VITALS: BP 130/69
--- NOTE | 2019-05-28 13:15 | NUR ---
ROUTINE MOTRIN GIVEN.
--- NOTE | 2019-05-28 13:25 | NUR ---
PT VOIDED A TOTAL OF 350 CC WITH BLADDER SCAN AT 200.7 CC AVERAGE. PT WANTING TO WALK IN THE [place] AND TRY TO VOID MORE BEFORE BEING STRAIGHT CATHED. OUT TO AMBULATE IN THE [place]. MOVING WELL.
--- NOTE | 2019-05-28 14:15 | NUR ---
VOIDED 200CC. APPROX. 224 MLS RESIDUAL VIA BLADDER SCAN.
--- NOTE | 2019-05-28 14:20 | NUR ---
STRAIGHT CATH WITH A #15FR CATHETER. [address] SUMNER NOTIFIED. ORDERS TO DISCHARGE WITH INSTRUCTIONS AND CIPRO BID X7 DAYS.
--- NOTE | 2019-05-28 14:40 | NUR ---
RX CALLED TO [facility] FOR CIPRO AND COLACE.
[2019-05-28] MEDS ORDERED: CIPR-225 PO (14:49)
--- NOTE | 2019-05-28 15:15 | NUR ---
DISCHARGE INSTRUCTIONS REVIEWED WITH COPY TO PT. STATES UNDERSTANDING OF ALL INSTRUCTIONS AND NEED TO F/U SCHEDULED AND NEEDED.
[2019-05-28 15:20] VITALS: BP 130/69
--- NOTE | 2019-05-28 15:20 | NUR ---
DISMISSED FROM [facility] VIA W/C TO FAMILY CAR IN STABLE CONDITION ACC BY JONNIE CLARK.
[2019-05-28] MEDS ORDERED: IBUPROFEN 800 MG (MOTRIN) TAB PO SCH (17:00)
--- NOTE | 2019-06-03 09:15 | OPERATIVE REPORT ---
DATE OF SERVICE: 05/27/2019 PREOPERATIVE DIAGNOSIS: For my part, urinary incontinence. POSTOPERATIVE DIAGNOSIS: For my part, urinary incontinence. OPERATION PERFORMED: Pubovaginal sling and cystoscopy. SURGEON: Renita Sumner MD MICROCHIP SPECIALIST: Alberto Calero MD ANESTHESIA: General. COMPLICATIONS: None. DESCRIPTION OF PROCEDURE: After Dr. Calreo performed the first part of the surgery that he will dictate, I inserted a Cheney catheter draining clear fluid. I passed the Solyx device on both sides using the described technique. The sling was sitting nicely under the mid urethra. There was no twisting, no tension and passage of a curved hemostat easily between it and underlying tissue. I removed the Cheney catheter and performed cystoscopy to confirm the integrity of the bladder, no foreign body visualized, no abnormalities of the ureters, bladder or urethra, and the sling sitting under the mid urethra. I left the bladder at least half full to perform the manual Valsalva maneuver after removing the cystoscope and it was negative. I reinserted a Cheney catheter draining clear fluid. Estimated blood loss less than 50 mL which was replaced and Dr. Calero proceeded with the rest of his surgery that he will dictate. Job ID: [id number] DocumentID: [id number] Dictated Date: 05/27/2019 14:02:45 Engineer Internship Date: 05/27/2019 23:28:41 Dictated By: RENITA SUMNER MD
--- NOTE | 2019-06-06 22:36 | OPERATIVE REPORT ---
DATE OF SERVICE: 05/27/2019 PREOPERATIVE DIAGNOSES: Dysfunctional uterine bleeding, postmenopausal bleeding, uterine and vaginal prolapse and stress urinary incontinence. POSTOPERATIVE DIAGNOSES: Dysfunctional uterine bleeding, postmenopausal bleeding, uterine and vaginal prolapse and stress urinary incontinence with pathology pending. OPERATIVE PROCEDURE: Total laparoscopic hysterectomy with bilateral salpingo-oophorectomy as well as anterior and posterior vaginal repairs with enterocele repair and pubovaginal sling and cystoscopy by Dr. Shook. OPERATIVE DESCRIPTION: With the patient in the supine position under satisfactory general anesthesia, she was repositioned in dorsal lithotomy position in the [facility] and prepped and draped in usual fashion for abdominal and vaginal surgery using the da Erica equipment. Weighted speculum placed in posterior fornix of vagina, cervix exposed and grasped anteriorly with single tooth tenaculum. Uterus sounded to 8.5 cm with uterine sound. The cervix was then serially dilated with Juan M dilators to accommodate a Jazmine II manipulator, which was placed in the usual manner with a 6 mm x 8 cm uterine probe and a 30 mm colpotomy ring. Sutures of #1 Vicryl placed at 3 and 9 o'clock position of the cervix to stabilize uterus and affixed to the manipulator. Cheney catheter was placed in the urinary bladder and the patient brought in low dorsal lithotomy position. A 12 mm incision was made 4 cm superior to the umbilicus. Veress needle was placed through that incision into the abdominal cavity and correct placement confirmed with water drop test. The abdomen was insufflated with 2.4 liters of carbon dioxide and the Veress needle was removed and a 12 mm Optiview laparoscopic port placed. The abdominal wall was transilluminated and 8 mm ports were placed through incisions of those sizes at 9 cm lateral to the umbilicus at the level of the umbilicus on each side. All port sites were infiltrated with 0.25% Marcaine with epinephrine prior to incision. The da Erica column was now advanced onto the patient and docked. The patient placed in Trendelenburg allowing the bowel to spill above the pelvis. Operative instruments were placed in the right and left lateral ports and I retired to the [employer] Erica console. At the console, using a vessel sealer on the right and a bipolar fenestrated grasper on the left, the pelvis was first examined. There was no traumatic or significant abnormal pathology. The procedure was initiated as was intended. No attempt was made to identify the appendix. The right tube and ovary grasped and elevated. The IP ligament was clamped, cauterized and divided that was continued across the mesovarium and down across the broad ligaments and down to the cardinal ligament, which was treated in the same manner allowing for removal of the tube and ovary on the right with the uterus eventually. The right ureter had been seemed to peristalse before or during the entire dissection. Same procedure performed on the left. The left ureter was very obvious as well. The anterior lower uterine segment peritoneum was then exposed and using a bipolar fenestrated grasper on the left and a monopolar shear now on the right, the anterior lower uterine segment peritoneum was divided. The bladder was carefully dissected down off the lower uterine segment and colpotomy incision was started at 12 o'clock position and continued circumferentially entire colpotomy ring was exposed and then the uterus with tubes and ovaries still attached was extracted through the vagina. The vaginal cuff was closed with single suture of V-Loc barbed suture starting from the first triangle angle and continuing completely across the vaginal cuff. Care was taken to ensure inclusion of the uterine pedicles with the angle stitches. With the vaginal cuff completely closed and hemostasis complete, the procedure was terminated. The operative instruments as well as the ports were removed under direct vision. No bleeding was noted. The abdomen was evacuated of the insufflating gas in the process of removing the ports. Skin incisions were stapled after first closing the fascia at the supraumbilical incision. The patient was now repositioned in dorsal lithotomy position in the [facility] for anterior and posterior vaginal repairs. Weighted speculum placed in posterior fornix of vagina. The anterior vaginal wall was grasped with two Kayla clamps. Vaginal wall was opened in the midline. That opening was continued from the vaginal apex to approximately centimeter half from the urethral meatus. Bladder was carefully dissected off the muscularis of the vagina back to the pubic rami bilaterally. The endopelvic fascia and bladder wall were then plicated with 2-0 Vicryl sutures, elevating the bladder and lengthening the urethra. At this point, Dr. Shook assumed care of the patient for the pubovaginal sling and cystoscopy. I remained to assist. Upon completion of Dr. Shook's portion of the procedure, which he will dictate, I resumed care of the patient. Resected the redundant anterior vaginal wall muscularis mucosa and then closed the vaginal wall with a running locked suture of 3-0 Vicryl Rapide. Good support was evident. Dr. Shook had left the Cheney catheter in the bladder to the dependent drainage. Posterior repair was affected by placing Kayla clamps on the perineum and the hymenal ring at 5 and 7 o'clock position and inverted triangle of skin was removed from the perineal body and upright triangle from the posterior vaginal floor. The rectovaginal space was entered sharply and dissected bluntly to the apex of the vagina where it was explored. There was a small enterocele that was reduced and plicated with two 2-0 Vicryl pursestring sutures with the enterocele obliterated. The rectovaginal space was now obliterated with additional suture of 2-0 Vicryl. The perineal body was restored with additional sutures of 2-0 Vicryl and the redundant tissue was resected and the vaginal wall was closed with running locked suture also of 3-0 Vicryl Rapide suture. Digital rectal exam confirmed no stricture or stenosis of the rectum and no sutures into or through the rectal mucosa. The vaginal vault was examined for hemostasis that being complete. The vaginal vault was filled with Estrace vaginal cream and a pack of Kerlix gauze was placed. The Cheney catheter was left to dependent drainage. Sponge and needle counts were correct on completion of the procedure. Estimated blood loss was around 150 mL. The patient tolerated the procedure well and was transferred to the recovery room in stable condition. Job ID: [id number] DocumentID: [id number] Dictated Date: 06/06/2019 14:37:45 Diagnostic Technologist Date: 06/06/2019 22:35:48 Dictated By: GOLDEN BIGGS MD MTDD
== END 2019-05-28 15:20 | disposition home or self-care (01) ==
LOC: SDC 10:20 → WS 16:00 → SDC 05-28 15:20
PROVIDERS: ATTEND Obstetrics & Gynecology
DX: N95.0 Postmenopausal bleeding (principal); N88.8 Other specified noninflammatory disorders of cervix uteri; N80.0 Endometriosis of uterus; D25.1 Intramural leiomyoma of uterus; D25.2 Subserosal leiomyoma of uterus; N93.8 Other specified abnormal uterine and vaginal bleeding; N81.4 Uterovaginal prolapse, unspecified; N39.3 Stress incontinence (female) (male); I10 Essential (primary) hypertension; M19.91 Primary osteoarthritis, unspecified site; Z80.41 Family history of malignant neoplasm of ovary; Z79.899 Other long term (current) drug therapy
CPT/HCPCS: 86850; 86900; 86901; 88307; 94664

== ENCOUNTER → 2021-10-04 | Outpatient (CLI) | payer MEDICARE, OTHER ==
[~2021-10-04] MED LIST changes: +CIPR-225 PO; -LISI-556 PO; +LISI-729 PO; -LISI10TA2 PO; +LISI10TA25 PO; +SIMV40TA25 PO; -SIMV40TA4 PO; -TRAM50TA2 PO; +TRM50T PO
--- NOTE | 2021-10-04 10:10 | Diagnostic Imaging Report ---
PROCEDURE: MRI lumbar spine. TECHNIQUE: Multiplanar, multisequence MRI of the lumbar spine was performed without contrast. INDICATION: Lower back pain with bilateral leg pain below the hips COMPARISON: 12/23/2011 FINDINGS: Five lumbar type vertebral bodies are assumed. Very minimal anterolisthesis of L4 on L5 measuring approximately 2 mm, increased since 2012. No additional anterolisthesis or retrolisthesis. Minimal chronic anterior wedging within the lower thoracic spine vertebral bodies is noted without associated marrow edema. Minimal scattered endplate irregularity is noted within the lumbar spine without significant degenerative marrow edema. Round T1 and T2 hyperintensity within the L3 vertebral bodies consistent with benign hemangioma. The conus medullaris is unremarkable and terminates at the appropriate location. A 0.9 cm round T2 hyperintensity is identified associated with the right L5/S1 facet joint extending posterolateral to the facet joint within the paraspinal soft tissues. This is felt to relate to a synovial cyst. The paraspinal soft tissues are otherwise unremarkable. T12/L1: No significant central canal or neural foraminal stenosis. L1/L2: Mild facet joint degenerative changes. Tiny diffuse disc bulge. There is slight effacement of the bilateral lateral recesses, left greater than right. Minimal bilateral neural foraminal stenosis. L2/L3: Mild facet joint degenerative changes. Tiny diffuse disc bulge. There is resulting minimal central canal stenosis. Mild right and minimal left neural foraminal stenosis. L3/L4: Moderate disc space height loss. Moderate facet joint degenerative changes. Ligamentum flavum hypertrophy. Small diffuse disc bulge. There is resulting moderate to severe trefoil type central canal stenosis with effacement of the left greater than right bilateral lateral recesses. Findings have worsened since the prior examination. Moderate bilateral neural foraminal stenosis. L4/L5: Mild disc space height loss. Minimal grade 1 anterolisthesis. Severe bilateral facet joint degenerative changes, right greater than left. Ligamentum flavum hypertrophy. There is resulting severe trefoil type central canal stenosis with severe effacement of the right lateral recess with impingement of the traversing right L5 nerve roots. Severe right and moderate left neural foraminal stenosis. L5/S1: Mild disc space height loss. Moderate facet joint degenerative changes. Synovial cyst on the right projecting posterolaterally into the paraspinal soft tissues. Small diffuse disc bulge. There is resulting slight effacement of the bilateral lateral recesses with associated moderate left and [id number] right neural foraminal stenosis. IMPRESSION: No acute osseous abnormality with multilevel degenerative changes, as described above, which have worsened since 2012. These degenerative changes are by far greatest at L4/L5 followed by L3/L4. There is apparent impingement of the traversing right L5 nerve root at the L4/L5 level with associated severe central canal stenosis. Dictated by: Dictated on workstation # [id number]
== END ==
LOC: RAD 08:04
PROVIDERS: ATTEND Family Medicine
DX: M47.816 Spondylosis without myelopathy or radiculopathy, lumbar region (principal); M47.817 Spondylosis without myelopathy or radiculopathy, lumbosacral region; M51.26 Other intervertebral disc displacement, lumbar region; M51.27 Other intervertebral disc displacement, lumbosacral region; M48.061 Spinal stenosis, lumbar region without neurogenic claudication; M48.07 Spinal stenosis, lumbosacral region; M24.28 Disorder of ligament, vertebrae; M43.16 Spondylolisthesis, lumbar region; M71.38 Other bursal cyst, other site
CPT/HCPCS: 72148

== ENCOUNTER → 2021-12-09 | Outpatient (CLI) | payer MEDICARE, OTHER ==
[~2021-12-09] MED LIST changes: -LISI-729 PO; +LISI5TAB20 PO
--- NOTE | 2021-12-09 12:14 | Diagnostic Imaging Report ---
Clinical indications: Patient with neck pain. No known injury. Exam: MRI of the cervical spine performed without IV contrast. Sequences include sagittal T1, sagittal T2, sagittal T2 fat-sat, and axial T2. Comparison: MRI of the cervical spine without contrast dated 05/13/2018. Findings: There is no acute cervical spine fracture. There is no significant abnormal cervical vertebral body signal. Limited visualization of posterior fossa is unremarkable. Cervical spinal cord has no abnormal signal. There is slight tortuosity and slight deformity of the cervical cord seen at the C5-C6 level due to disk disease. There is no significant paraspinal soft tissue abnormality. Cervical spine vertebral body spurs are seen most pronounced in the mid and lower cervical spine. C1-C2: Again noted, prominent periodontoid process. There is questionable slight increased erosion and sclerosis involving the posterior aspect of the odontoid process. There is no significant central canal stenosis. C2-C3: Stable bilateral facet arthropathy. There is no significant central spinal canal or neural foramen narrowing. C3-C4: There is severe bilateral facet arthropathy/hypertrophy which is slightly progressed. There is stable severe right neural foraminal narrowing. There is progression of moderate to severe left neural foraminal narrowing. Stable small posterior disk bulge. There is no significant central canal stenosis. C4-C5: Stable severe right facet arthropathy/hypertrophy and moderate left facet arthropathy. Stable severe left neural foraminal narrowing and moderate to severe right neural foraminal narrowing. Stable mild central canal stenosis. Stable mild diffuse disk bulge. C5-C6: There is interval progression of diffuse disk bulge with now moderate loss of disk space height and slight increased size of the left uncinate spurs. There is moderate to severe central canal stenosis again seen. There is severe left neural foramen narrowing and moderate to severe right neural foramen narrowing which has minimally progressed. C6-C7: Slight increased size of the diffuse disk bulge with mild loss of disk space height. There is mild to moderate bilateral facet arthropathy. There is moderate central canal stenosis which is slightly progressed. There is moderate to severe right neural foramen narrowing and moderate to severe left neural foramen narrowing which is slightly progressed. C7-T1: There is interval development of a small disk bulge in the left foraminal region and left subarticular region. There is moderate left neural foramen narrowing which has progressed. There is no significant right neural foramen narrowing or central canal stenosis. IMPRESSION: 1: There is interval progression of multilevel cervical spine degenerative disk disease which is described above. 2: There is again noted prominent trace-odontoid pannus with questionable progression of erosions of the posterior aspect of the odontoid process. These findings may be seen with CPPD or rheumatoid arthritis. Dictated by: Dictated on workstation # [id number]
== END ==
LOC: RAD 10:15
PROVIDERS: ATTEND Family Medicine
DX: M47.22 Other spondylosis with radiculopathy, cervical region (principal); M50.123 Cervical disc disorder at C6-C7 level with radiculopathy; M48.02 Spinal stenosis, cervical region
CPT/HCPCS: 72141